=== PATIENT | female | born 1985 | race Caucasian/White ===

== ENCOUNTER 2020-12-01 11:29 | Emergency (ER) | payer OTHER, SELFPAY ==
--- NOTE | 2020-12-01 11:42 | PC.NURSE ---
ekg done at 1137
[2020-12-01 11:49] VITALS: BP 144/73; PULSE 84; RESP 16; TEMP 36.9; O2SAT 100; BMI 25.7
--- NOTE | 2020-12-01 12:10 | XR_ITS ---
EXAMINATION: XR CHEST CLINICAL INFORMATION: Palpitations. COMPARISON: None TECHNIQUE: Frontal upright view of the chest was obtained. FINDINGS: No significant abnormality is noted involving the heart, lungs, mediastinum, bony thorax or soft tissues. XR/XR chest 1V IMPRESSION: Unremarkable examination.
--- NOTE | 2020-12-01 12:11 | ECG_ITS ---
Test Reason : CHEST PAIN Blood Pressure : / mmHG Vent. Rate : 090 BPM Atrial Rate : 090 BPM P-R Int : 136 ms QRS Dur : 078 ms QT Int : 372 ms P-R-T Axes : 061 048 036 degrees QTc Int : 455 ms Normal sinus rhythm Nonspecific ST abnormality Abnormal ECG When compared with ECG of 30-JUN-2019 00:12, Nonspecific T wave abnormality no longer evident in Anterior leads Referred By: Keyal Starks Electronically Signed By:MARIUM COVINGTON
[2020-12-01 12:28] LABS: MANUAL DIFF FLAG NO
[2020-12-01 12:30] LABS: Color Urine STRAW; Glucose Urine UA NEG (NEG); Leukocyte Esterase Urine NEG (NEG); Nitrite Urine NEG (NEG); PH 5.5 (5.0-8.0); Specific Gravity - Urine 1.015 (1.005-1.025); Urine Blood NEG (NEG); Urine Ketones NEG (NEG); Urine Protein NEG (NEG-TRACE)
[2020-12-01 12:31] LABS: Appearance Urine HAZY; Basophils Absolute Auto 0.1 X10*3/uL (0.0-0.2); Basophils Percent Auto 0.5 % (0-2); Eosinophils Absolute Auto 0.1 X10*3/uL (0.0-0.4); Eosinophils Percent Auto 1.1 % (0-4); Hematocrit 36.8 % (37-47); Hemoglobin 12.2 g/dl (12.0-16.0); Imm Gran Abs Auto 0.03 X10*3/uL (0.00-0.03); Imm Gran Pct Auto 0.3 % (0.0-0.4); Lymphocytes Absolute Auto 1.4 X10*3/uL (1.2-4.9); Lymphocytes Percent Auto 15.4 % (20-40); Mean Corpuscular HGB Conc 33.2 g/dl (31.0-35.0); Mean Corpuscular Hemoglobin 27.9 pg (27.0-33.0); Mean Platelet Volume 11.7 fL (9.4-12.3); Monocytes Absolute Auto 0.4 X10*3/uL (0.1-1.2); Monocytes Percent Auto 4.4 % (2-11); Neutrophils Absolute Auto 7.3 X10*3/uL (2.0-8.3); Neutrophils Percent Auto 78.3 % (45-73); Platelet Count 222 X10*3/uL (160-400); Red Blood Count 4.38 X10*6/uL (4.20-5.50); White Blood Count 9.4 X10*3/uL (4.8-10.8)
[2020-12-01 12:32] LABS: UPreg QC Valid YES; Urine Pregnancy NEGATIVE (NEGATIVE)
[2020-12-01 12:57] LABS: Alanine Aminotransferase 10 U/L (0-31); Albumin Level 4.6 g/dL (3.5-5.0); Alkaline Phosphatase 61 U/L (39-117); Anion Gap 14 (12-20); Aspartate Amino Transferase 15 U/L (5-31); Bilirubin Direct < 0.2 mg/dL (0.0-0.5); Bilirubin Total 0.3 mg/dL (0.0-1.0); Blood Urea Nitrogen 9 mg/dL (9-16); Calcium 8.9 mg/dL (8.4-10.2); Carbon Dioxide 20 mmol/L (22-29); Chloride 109 mmol/L (96-108); Creatinine Clr Calc Pharmacy 101.7; Estimated Glomerular Filt Rate > 60; Glucose Random 101 mg/dL (60-115); Magnesium 2.2 mg/dL (1.6-2.6); Sodium 139 mmol/L (135-145); Total Protein 7.4 g/dL (6.5-8.0)
[2020-12-01 12:59] LABS: Troponin-I High Sensitivity < 3.5 ng/L (<3.5-17.0)
[2020-12-01 13:09] VITALS: BP 131/73; PULSE 88; RESP 18; TEMP 37; O2SAT 100
[2020-12-01 13:28] LABS: TSH reflex Free T4 3.59 mIU/mL (0.32-4.0)
[2020-12-01 15:02] VITALS: BP 123/64; PULSE 93; RESP 16; TEMP 36.9; O2SAT 100
--- NOTE | 2020-12-01 15:09 | ED.CHESTPAIN ---
HPI - Chest Pain General Chief Complaint: Chest Pain Stated Complaint: chest pain Time Seen by Provider: 12/01/20 11:56 Source: patient Mode of arrival: ambulatory History of Present Illness HPI narrative: 35-year-old female with no significant past medical history presenting to the ED complaining of chest palpitations since last night with mild SOB. Denies similar symptoms in the past. Denies chest pain, cough, fever, chills, LE edema, abdominal pain, nausea/vomiting, recent travel MD complaint: other (Palpitations) Related Data Allergies Allergy/AdvReac Type Severity Reaction Status Date / Time No Known Allergies Allergy Unverified 07/26/20 17:17 Review of Systems Review of Systems: Constitutional: No Weight loss, No Fever, No Chills Cardiovascular: No Chest Pain, +SOB, No Dyspnea on Exertion, No Edema,+Palpitations Respiratory: No Cough, No Sputum, No Wheezing, No Smoke Exposure, No Dyspnea Gastrointestinal: No Nausea, No Vomiting, No Diarrhea, No Abdominal pain Genitourinary: No irregular bleeding, No Dysuria Musculoskeletal: No joint pain, No Myalgias, No Joint Swelling Skin: No Skin Lesions, No rash Neuro: No Weakness, No Numbness, No Dizziness, No Headache Yes all other systems are reviewed and are negative [facility] Past Medical History Attestation statement: The following information was validated with the patient. Surgical History (Updated 12/01/20 @ 11:51 by Edison Almaraz) Previous section Social History Social History Alcohol intake: never Smoking Status: Never smoker Use of substances other than those prescribed or required for medical reasons: No Advance Directives: No Advance Directives Information Provided: No Physical Exam Vital Signs: Vital Signs: Last Vital Signs Temp 98.4 F 12/01/20 15:02 Pulse 93 12/01/20 15:02 Resp 16 12/01/20 15:02 BP 123/64 12/01/20 15:02 Pulse Ox 100 12/01/20 15:02 Body Mass Index 25.7 Const: General: cooperative, healthy appearing, comfortable and no acute distress Orientation/consciousness: patient oriented x3 Limitations: no limitations HENMT: Head: Yes normal to inspection Ears: hearing grossly normal bilaterally General nose exam: Normal external nose present Face and sinus: Yes normal facial exam Eyes: General: appearance normal, both eyes and all related structures EOM: EOMs intact bilaterally Neck: Neck: Yes normal visual inspection and Yes no meningeal signs Resp: Effort & Inspection: normal respiratory effort Auscultation: clear to auscultation bilaterally, no rales, no rhonchi and no wheezes Cardio: Rate: regular rate Heart sounds: S1 normal heart sound present and S2 normal heart sound present GI: Inspection: Yes normal to inspection Palpation (GI): Soft to palpation, nontender, no guarding and not rigid Skin: Rashes: no rashes Wounds: no wounds Neuro: General: patient oriented x3 and no meningeal signs Gait exam (Neuro): Normal gait present Extrem: Other: No LE edema or calf tenderness General: Yes normal to inspection Course Course Course Narrative: Labs unremarkable including troponin, TSH, and negative . CXR unremarkable. Results were discussed with patient including worrisome signs and symptoms and strict return precautions. Patient is to follow-up with cardiology/PCP MDM - Chest Pain MDM Narrative Medical decision making narrative: 35-year-old female with no significant past medical history presenting to the ED complaining of chest palpitations since last night with mild SOB. On exam VSS, NAD/well-appearing, EKG nonischemic, lungs CTA, no edema. Concern for palpitations/arrhythmia vs metabolic abnormalities/thyroid dysfunction vs ACS. Low concern for PE Plan: ECG, labs, CXR, re-evaluate Medical Records Data Attestation: I reviewed the patient's medical records. Lab Data Attestation: I reviewed the patient's lab results. Result diagrams: 12/01/20 12:22 12/01/20 12:22 Labs: Lab Results 12/01/20 12/01/20 12/01/20 Range/Units 12:22 12:22 12:22 WBC 9.4 (4.8-10.8) X10*3/uL RBC 4.38 (4.20-5.50) X10*6/uL Hgb 12.2 (12.0-16.0) g/dl Hct 36.8 L (37-47) % MCV 84.0 (80-98) fL MCH 27.9 (27.0-33.0) pg MCHC 33.2 (31.0-35.0) g/dl RDW 13.0 (11.0-16.0) % Plt Count 222 (160-400) X10*3/uL MPV 11.7 (9.4-12.3) fL Immature Gran % (Auto) 0.3 (0.0-0.4) % Neut % (Auto) 78.3 H (45-73) % Lymph % (Auto) 15.4 L (20-40) % [place] % (Auto) 4.4 (2-11) % Eos % (Auto) 1.1 (0-4) % Baso % (Auto) 0.5 (0-2) % Lymph # (Auto) 1.4 (1.2-4.9) X10*3/uL [place] # (Auto) 0.4 (0.1-1.2) X10*3/uL Eos # (Auto) 0.1 (0.0-0.4) X10*3/uL Baso # (Auto) 0.1 (0.0-0.2) X10*3/uL Abs Immat Gran (auto) 0.03 (0.00-0.03) X10*3/uL Absolute Neuts (auto) 7.3 (2.0-8.3) X10*3/uL Absolute Nucleated RBC 0.000 (0.0-0.012) X10*3/uL Nucleated RBC % (auto) 0.0 (0.0-0.2) /100WBC Hold Blue Top SEE NOTE Sodium 139 (135-145) mmol/L Potassium 4.0 (3.3-5.1) mmol/l Chloride 109 H (96-108) mmol/L Carbon Dioxide 20 L (22-29) mmol/L Anion Gap 14 (12-20) BUN 9 (9-16) mg/dL Creatinine 0.71 (0.5-1.4) mg/dL Estim Creat Clear Calc 101.7 Estimated GFR > 60 Random Glucose 101 (60-115) mg/dL Calcium 8.9 (8.4-10.2) mg/dL Magnesium 2.2 (1.6-2.6) mg/dL Total Bilirubin 0.3 (0.0-1.0) mg/dL Direct Bilirubin < 0.2 (0.0-0.5) mg/dL AST 15 (5-31) U/L ALT 10 (0-31) U/L Alkaline Phosphatase 61 (39-117) U/L Troponin I High Sens (<3.5-17.0) ng/L Total Protein 7.4 (6.5-8.0) g/dL Albumin 4.6 (3.5-5.0) g/dL TSH 3.59 (0.32-4.0) mIU/mL Urine Color Urine Appearance Urine pH (5.0-8.0) Ur Specific [place] (1.005-1.025) Urine Protein (NEG-TRACE) MG/DL Urine Glucose (UA) (NEG) MG/DL Urine Ketones (NEG) MG/DL Urine Blood (NEG) Urine Nitrite (NEG) Ur Leukocyte Esterase (NEG) Urine Test (NEGATIVE) 12/01/20 12/01/20 Range/Units 12:22 12:22 WBC (4.8-10.8) X10*3/uL RBC (4.20-5.50) X10*6/uL Hgb (12.0-16.0) g/dl Hct (37-47) % MCV (80-98) fL MCH (27.0-33.0) pg MCHC (31.0-35.0) g/dl RDW (11.0-16.0) % Plt Count (160-400) X10*3/uL MPV (9.4-12.3) fL Immature Gran % (Auto) (0.0-0.4) % Neut % (Auto) (45-73) % Lymph % (Auto) (20-40) % [place] % (Auto) (2-11) % Eos % (Auto) (0-4) % Baso % (Auto) (0-2) % Lymph # (Auto) (1.2-4.9) X10*3/uL [place] # (Auto) (0.1-1.2) X10*3/uL Eos # (Auto) (0.0-0.4) X10*3/uL Baso # (Auto) (0.0-0.2) X10*3/uL Abs Immat Gran (auto) (0.00-0.03) X10*3/uL Absolute Neuts (auto) (2.0-8.3) X10*3/uL Absolute Nucleated RBC (0.0-0.012) X10*3/uL Nucleated RBC % (auto) (0.0-0.2) /100WBC Hold Blue Top Sodium (135-145) mmol/L Potassium (3.3-5.1) mmol/l Chloride (96-108) mmol/L Carbon Dioxide (22-29) mmol/L Anion Gap (12-20) BUN (9-16) mg/dL Creatinine (0.5-1.4) mg/dL Estim Creat Clear Calc Estimated GFR Random Glucose (60-115) mg/dL Calcium (8.4-10.2) mg/dL Magnesium (1.6-2.6) mg/dL Total Bilirubin (0.0-1.0) mg/dL Direct Bilirubin (0.0-0.5) mg/dL AST (5-31) U/L ALT (0-31) U/L Alkaline Phosphatase (39-117) U/L Troponin I High Sens < 3.5 (<3.5-17.0) ng/L Total Protein (6.5-8.0) g/dL Albumin (3.5-5.0) g/dL TSH (0.32-4.0) mIU/mL Urine Color STRAW Urine Appearance HAZY Urine pH 5.5 (5.0-8.0) Ur Specific [place] 1.015 (1.005-1.025) Urine Protein NEG (NEG-TRACE) MG/DL Urine Glucose (UA) NEG (NEG) MG/DL Urine Ketones NEG (NEG) MG/DL Urine Blood NEG (NEG) Urine Nitrite NEG (NEG) Ur Leukocyte Esterase NEG (NEG) Urine Test NEGATIVE (NEGATIVE) ECG Data ECG #1: Attestation: I personally reviewed and interpreted this ECG as follows: ECG interpretation date: 12/01/20 ECG interpretation time: 11:36 Interpretation: EKG normal sinus rhythm with a rate of 90. Nonischemic. No STEMI. Discharge Plan Discharge Clinical Impression: Heart palpitations Patient Disposition: Home, Self-Care Instructions: Heart Palpitations (ED) Additional Instructions: Your blood work and chest x-ray were reassuring today in the emergency department. Her EKG did not show anything concerning. It is important for you to follow-up with your primary care doctor as well as a rn document improvement specialist If her symptoms persist or worsen, you develop shortness of breath, fever, or weakness return to the ED Referrals: Vinny Berkowitz MD [Physician] - 1 week Interventions: ED Discharge Assessment Last Done: 12/01/20 15:40 Discharge Date/Time: 12/01/20 15:41
[2020-12-01 15:14] VITALS: PULSE 78
== END 2020-12-01 15:41 | disposition home or self-care (01) ==
PROVIDERS: Physician Assistant; Emergency Provider Internal Medicine
DX: R00.2 Palpitations (principal); R07.9 Chest pain, unspecified
CPT/HCPCS: 36415; 71045; 80048; 80076; 81003; 81025; 83735; 84443; 84484; 85025; 93005; 99284

== ENCOUNTER → 2020-12-12 14:55 | Outpatient (BNVA) | payer OTHER, SELFPAY | PROVIDERS: PCP Internal Medicine; Visit Provider Internal Medicine | DX: R00.2 Palpitations (principal) | CPT/HCPCS: 99202 ==

== ENCOUNTER 2021-01-31 11:55 | Emergency (ER) | payer OTHER, SELFPAY ==
--- NOTE | ~2021-01-31 | US_ITS ---
EXAMINATION: US VENOUS ULTRASOUND WITH DOPPLER LOWER EXTREMITY, RIGHT CLINICAL INFORMATION: Right lower extremity edema, pain. Assess for occult DVT. COMPARISON: None TECHNIQUE: Ultrasound of the deep veins is performed from the hip to the calf with compression sonography and color and pulse Doppler assessment. Spectral analysis with color-flow imaging is performed. FINDINGS: There is normal venous compression and respiratory variation and augmented flow. The visualized common femoral vein, superficial femoral vein, profunda femoral vein, popliteal vein, and the trifurcation region shows no evidence of deep venous thrombosis. No popliteal fossa cyst. US/US venous duplex LE RT IMPRESSION: No DVT demonstrated in the right lower extremity.
--- NOTE | ~2021-01-31 | CT_ITS ---
EXAMINATION: CT ABDOMEN AND PELVIS WITHOUT CONTRAST CLINICAL INFORMATION: Flank pain, fever COMPARISON: Right leg venous ultrasound 01/31/2021, lumbar spine radiographs 09/08/2013 TECHNIQUE: Multidetector volumetric imaging was performed from the superior aspect of the liver through the pubic symphysis. Sagittal and coronal reformatted images were obtained on the technologist's workstation. This CT examination was performed using dose optimization techniques as appropriate, variously including the following: *Automated exposure control *Adjustment of mA and/or kV according to patient size (this includes techniques or standardized protocols for targeted exams where dose is matched to indication/reason for exam; i.e. extremities or head) *Use of iterative reconstruction technique DLP: 420 mGy-cm FINDINGS: LUNG BASES: The visualized lung bases are unremarkable. LIVER, GALLBLADDER, AND BILIARY TREE: The liver is normal in size, shape, and attenuation. No focal hepatic lesion or biliary ductal dilatation is present. The gallbladder is unremarkable with no evidence of radiopaque gallstones, gallbladder wall thickening, or obvious pericholecystic inflammatory changes. PANCREAS: Unremarkable. SPLEEN: Spleen is normal in size and homogeneous. There are 2 small splenules left upper quadrant, both just under 1 cm. ADRENAL GLANDS: Unremarkable. KIDNEYS AND URETERS: The kidneys are normal in size and smooth in contour. There is no hydronephrosis, hydroureter, or perinephric stranding. Punctate nonobstructing calculus under 3 mm is present left lower pole and there are 2 small calculi right lower pole, the larger only 4 x 3 mm. There are no right ureteral calculi. There is a punctate calcification under 3 mm overlying the left iliac vessels and psoas, series 4 image 517, at level S1. The ureter is not clearly visualized and cannot exclude a punctate nonobstructing left ureteral calculus. BLADDER: Unremarkable. GASTROINTESTINAL TRACT: No bowel obstruction or focal inflammatory changes in the bowel or mesentery. The appendix is normal. There is no ascites or fluid collection. No pneumatosis or free air. ABDOMINAL WALL: No significant hernia is appreciated. LYMPH NODES: No lymphadenopathy. VASCULAR: Unremarkable. PELVIC VISCERA: IUD in position. No adnexal mass or pelvic ascites. OSSEOUS STRUCTURES: Unremarkable. CT/CT abdomen pelvis wo con IMPRESSION: 1. No hydronephrosis, hydroureter, or perinephric stranding. Bilateral punctate nonobstructing calculi, largest right lower pole 4 x 3 mm. 2. Punctate calcification under 3 mm left lower quadrant S1 level near expected location of left ureter and iliac vessels. Unable to exclude nonobstructing punctate ureteral calculus. Clinically correlate. 3. No bowel obstruction or inflammatory changes in abdomen or pelvis. Appendix normal.
[2021-01-31 12:05] VITALS: BP 108/62; PULSE 78; RESP 16; TEMP 36.8; O2SAT 98; BMI 20.1
[2021-01-31] MEDS: 0.9 % Sodium Chloride 1,000 ML 999 ML IV (12:45)
[2021-01-31 12:59] LABS: MANUAL DIFF FLAG NO
[2021-01-31 13:02] LABS: Basophils Percent Auto 0.4 % (0-2); Eosinophils Absolute Auto 0.1 X10*3/uL (0.0-0.4); Eosinophils Percent Auto 2.2 % (0-4); Hematocrit 42.4 % (37-47); Hemoglobin 13.9 g/dl (12.0-16.0); Imm Gran Abs Auto 0.02 X10*3/uL (0.00-0.03); Imm Gran Pct Auto 0.4 % (0.0-0.4); Lymphocytes Absolute Auto 1.7 X10*3/uL (1.2-4.9); Lymphocytes Percent Auto 33.7 % (20-40); Mean Corpuscular HGB Conc 32.8 g/dl (31.0-35.0); Mean Corpuscular Hemoglobin 30.8 pg (27.0-33.0); Mean Platelet Volume 11.5 fL (9.4-12.3); Monocytes Absolute Auto 0.5 X10*3/uL (0.1-1.2); Monocytes Percent Auto 8.8 % (2-11); Neutrophils Absolute Auto 2.8 X10*3/uL (2.0-8.3); Neutrophils Percent Auto 54.5 % (45-73); Platelet Count 171 X10*3/uL (160-400); Red Blood Count 4.51 X10*6/uL (4.20-5.50); Red Cell Distribution Width 11.9 % (11.0-16.0); White Blood Count 5.1 X10*3/uL (4.8-10.8)
[2021-01-31 13:08] LABS: Glucose Urine UA NEG (NEG); Leukocyte Esterase Urine TRACE (NEG); Nitrite Urine NEG (NEG); UACC Culture Trigger YES; Urine Blood 1+ (NEG); Urine Ketones NEG (NEG); Urine Protein NEG (NEG-TRACE)
[2021-01-31 13:09] LABS: Appearance Urine HAZY; Color Urine YELLOW
[2021-01-31 13:19] LABS: RBC Urine 0-2 /HPF (0); UACC CULT YES
[2021-01-31 13:20] LABS: Mucus Urine TRACE /LPF; Squamous Epithelial Cell Urine 1+ /LPF
[2021-01-31 13:30] LABS: Alanine Aminotransferase 7 U/L (0-31); Albumin Level 4.6 g/dL (3.5-5.0); Alkaline Phosphatase 68 U/L (39-117); Anion Gap 13 (12-20); Aspartate Amino Transferase 13 U/L (5-31); Bilirubin Total 0.6 mg/dL (0.0-1.0); Blood Urea Nitrogen 10 mg/dL (9-16); Calcium 9.5 mg/dL (8.4-10.2); Carbon Dioxide 28 mmol/L (22-29); Chloride 104 mmol/L (96-108); Creatinine Clr Calc Pharmacy 95.9; Estimated Glomerular Filt Rate > 60; Glucose Random 86 mg/dL (60-115); Potassium 4.3 mmol/L (3.3-5.1); Sodium 141 mmol/L (135-145); Total Protein 7.7 g/dL (6.5-8.0)
[2021-01-31 13:50] LABS: Thyroid Stimulating Hormone 1.03 uIU/mL (0.32-4.0)
[2021-01-31 14:07] LABS: UPreg QC Valid YES; Urine Pregnancy NEGATIVE (NEGATIVE)
[2021-01-31 14:44] VITALS: BP 103/56; PULSE 73; RESP 16; TEMP 36.7; O2SAT 100
--- NOTE | 2021-01-31 14:56 | ED.GENADULT ---
HPI - General Adult General Chief complaint: General Medical <Gerald Louise NP - Last Filed: 01/31/21 15:51> Stated complaint: multiple complaints <Gerald Louise NP - Last Filed: 01/31/21 15:51> Time Seen by Provider: 01/31/21 11:58 <Gerald Louise NP - Last Filed: 01/31/21 15:51> Related Data Home medications: Previous Rx's Medication Instructions Recorded metronidazole [Flagyl] 500 mg PO BID 7 Days #14 tab 01/31/21 nitrofurantoin monohyd/m-cryst 100 mg PO Q12H 7 Days #14 cap 01/31/21 [Macrobid] ondansetron HCl [Zofran] 4 mg PO Q8H PRN #10 tab 01/31/21 tamsulosin [Flomax] 0.4 mg PO DAILY #30 cap 01/31/21 <Gerald Louise NP - Last Filed: 01/31/21 15:51> Allergies/adverse reactions: Allergies Allergy/AdvReac Type Severity Reaction Status Date / Time No Known Allergies Allergy Verified 12/12/20 15:00 <Gerald Louise NP - Last Filed: 01/31/21 15:51> [facility] Past Medical History Surgical History: Surgical History (Updated 12/01/20 @ 11:51 by Edison Almaraz) Previous section <Gerald Louise NP - Last Filed: 01/31/21 15:51> Family History Family History: Family History (Updated 12/12/20 @ 15:04 by CARMEL [place]) Father Heart attack Mother Diabetes <Gerald Louise NP - Last Filed: 01/31/21 15:51> Social History Social History: Social History Alcohol intake: never Smoking Status: Never smoker Use of substances other than those prescribed or required for medical reasons: No Advance Directives: No Advance Directives Information Provided: No <Gerald Louise NP - Last Filed: 01/31/21 15:51> Physical Exam Vital Signs: Vital Signs: Last Vital Signs Temp 98.0 F 01/31/21 14:44 Pulse 73 01/31/21 14:44 Resp 16 01/31/21 14:44 BP 103/56 L 01/31/21 14:44 Pulse Ox 100 01/31/21 14:44 Body Mass Index 20.1 <Gerald Louise NP - Last Filed: 01/31/21 15:51> Vital Signs: Last Vital Signs Temp 98.0 F 01/31/21 14:44 Pulse 73 01/31/21 14:44 Resp 16 01/31/21 14:44 BP 103/56 L 01/31/21 14:44 Pulse Ox 100 01/31/21 14:44 Body Mass Index 20.1 <Jeanna Woody NP - Last Filed: 02/09/21 09:52> Course Course Course Narrative: -This is an addendum to the chart and I have not seen this patient personally. +BV on BV panel. Patient treated. Multiple calls to inform with no answer. Letter sent. <Jeanna Woody NP - Last Filed: 02/09/21 09:52> Medical Decision Making Lab Data Result diagrams: : 01/31/21 12:43 01/31/21 12:43 <Gerald Louise NP - Last Filed: 01/31/21 15:51> Labs: Lab Results 01/31/21 01/31/21 01/31/21 Range/Units 12:43 12:43 12:43 WBC 5.1 (4.8-10.8) X10*3/uL RBC 4.51 (4.20-5.50) X10*6/uL Hgb 13.9 (12.0-16.0) g/dl Hct 42.4 (37-47) % MCV 94.0 (80-98) fL MCH 30.8 (27.0-33.0) pg MCHC 32.8 (31.0-35.0) g/dl RDW 11.9 (11.0-16.0) % Plt Count 171 (160-400) X10*3/uL MPV 11.5 (9.4-12.3) fL Immature Gran % (Auto) 0.4 (0.0-0.4) % Neut % (Auto) 54.5 (45-73) % Lymph % (Auto) 33.7 (20-40) % [place] % (Auto) 8.8 (2-11) % Eos % (Auto) 2.2 (0-4) % Baso % (Auto) 0.4 (0-2) % Lymph # (Auto) 1.7 (1.2-4.9) X10*3/uL [place] # (Auto) 0.5 (0.1-1.2) X10*3/uL Eos # (Auto) 0.1 (0.0-0.4) X10*3/uL Baso # (Auto) 0.0 (0.0-0.2) X10*3/uL Abs Immat Gran (auto) 0.02 (0.00-0.03) X10*3/uL Absolute Neuts (auto) 2.8 (2.0-8.3) X10*3/uL Absolute Nucleated RBC 0.000 (0.0-0.012) X10*3/uL Nucleated RBC % (auto) 0.0 (0.0-0.2) /100WBC Hold Blue Top SEE NOTE Sodium 141 (135-145) mmol/L Potassium 4.3 (3.3-5.1) mmol/L Chloride 104 (96-108) mmol/L Carbon Dioxide 28 (22-29) mmol/L Anion Gap 13 (12-20) BUN 10 (9-16) mg/dL Creatinine 0.74 (0.5-1.4) mg/dL Estim Creat Clear Calc 95.9 Estimated GFR > 60 Random Glucose 86 (60-115) mg/dL Calcium 9.5 D (8.4-10.2) mg/dL Total Bilirubin 0.6 (0.0-1.0) mg/dL AST 13 (5-31) U/L ALT 7 (0-31) U/L Alkaline Phosphatase 68 (39-117) U/L Total Protein 7.7 (6.5-8.0) g/dL Albumin 4.6 (3.5-5.0) g/dL TSH 1.03 (0.32-4.0) uIU/mL Urine Color Urine Appearance Urine pH (5.0-8.0) Ur Specific [place] (1.005-1.025) Urine Protein (NEG-TRACE) MG/DL Urine Glucose (UA) (NEG) MG/DL Urine Ketones (NEG) MG/DL Urine Blood (NEG) Urine Nitrite (NEG) Ur Leukocyte Esterase (NEG) Urine RBC (0) /HPF Urine WBC (0-4) /HPF Ur Squamous Epith Cells /LPF Urine Bacteria /LPF Urine Mucus /LPF Urine Test (NEGATIVE) Crystal species DNA (Negative) [place] DNA Probe (Negative) Trichomonas DNA Probe (Negative) 01/31/21 01/31/21 01/31/21 Range/Units 12:43 12:43 15:36 WBC (4.8-10.8) X10*3/uL RBC (4.20-5.50) X10*6/uL Hgb (12.0-16.0) g/dl Hct (37-47) % MCV (80-98) fL MCH (27.0-33.0) pg MCHC (31.0-35.0) g/dl RDW (11.0-16.0) % Plt Count (160-400) X10*3/uL MPV (9.4-12.3) fL Immature Gran % (Auto) (0.0-0.4) % Neut % (Auto) (45-73) % Lymph % (Auto) (20-40) % [place] % (Auto) (2-11) % Eos % (Auto) (0-4) % Baso % (Auto) (0-2) % Lymph # (Auto) (1.2-4.9) X10*3/uL [place] # (Auto) (0.1-1.2) X10*3/uL Eos # (Auto) (0.0-0.4) X10*3/uL Baso # (Auto) (0.0-0.2) X10*3/uL Abs Immat Gran (auto) (0.00-0.03) X10*3/uL Absolute Neuts (auto) (2.0-8.3) X10*3/uL Absolute Nucleated RBC (0.0-0.012) X10*3/uL Nucleated RBC % (auto) (0.0-0.2) /100WBC Hold Blue Top Sodium (135-145) mmol/L Potassium (3.3-5.1) mmol/L Chloride (96-108) mmol/L Carbon Dioxide (22-29) mmol/L Anion Gap (12-20) BUN (9-16) mg/dL Creatinine (0.5-1.4) mg/dL Estim Creat Clear Calc Estimated GFR Random Glucose (60-115) mg/dL Calcium (8.4-10.2) mg/dL Total Bilirubin (0.0-1.0) mg/dL AST (5-31) U/L ALT (0-31) U/L Alkaline Phosphatase (39-117) U/L Total Protein (6.5-8.0) g/dL Albumin (3.5-5.0) g/dL TSH (0.32-4.0) uIU/mL Urine Color YELLOW Urine Appearance HAZY Urine pH 7.0 (5.0-8.0) Ur Specific [place] 1.020 (1.005-1.025) Urine Protein NEG (NEG-TRACE) MG/DL Urine Glucose (UA) NEG (NEG) MG/DL Urine Ketones NEG (NEG) MG/DL Urine Blood 1+ H (NEG) Urine Nitrite NEG (NEG) Ur Leukocyte Esterase TRACE H (NEG) Urine RBC 0-2 (0) /HPF Urine WBC 5-9 H (0-4) /HPF Ur Squamous Epith Cells 1+ /LPF Urine Bacteria NONE /LPF Urine Mucus TRACE /LPF Urine Test NEGATIVE (NEGATIVE) Crystal species DNA Negative (Negative) [place] DNA Probe Positive A (Negative) Trichomonas DNA Probe Negative (Negative) <Gerald Louise, [employer]ARTON MAKING MACHINE OPERATOR - Last Filed: 01/31/21 15:51> Lab Results 01/31/21 01/31/21 01/31/21 Range/Units 12:43 12:43 12:43 WBC 5.1 (4.8-10.8) X10*3/uL RBC 4.51 (4.20-5.50) X10*6/uL Hgb 13.9 (12.0-16.0) g/dl Hct 42.4 (37-47) % MCV 94.0 (80-98) fL MCH 30.8 (27.0-33.0) pg MCHC 32.8 (31.0-35.0) g/dl RDW 11.9 (11.0-16.0) % Plt Count 171 (160-400) X10*3/uL MPV 11.5 (9.4-12.3) fL Immature Gran % (Auto) 0.4 (0.0-0.4) % Neut % (Auto) 54.5 (45-73) % Lymph % (Auto) 33.7 (20-40) % [place] % (Auto) 8.8 (2-11) % Eos % (Auto) 2.2 (0-4) % Baso % (Auto) 0.4 (0-2) % Lymph # (Auto) 1.7 (1.2-4.9) X10*3/uL [place] # (Auto) 0.5 (0.1-1.2) X10*3/uL Eos # (Auto) 0.1 (0.0-0.4) X10*3/uL Baso # (Auto) 0.0 (0.0-0.2) X10*3/uL Abs Immat Gran (auto) 0.02 (0.00-0.03) X10*3/uL Absolute Neuts (auto) 2.8 (2.0-8.3) X10*3/uL Absolute Nucleated RBC 0.000 (0.0-0.012) X10*3/uL Nucleated RBC % (auto) 0.0 (0.0-0.2) /100WBC Hold Blue Top SEE NOTE Sodium 141 (135-145) mmol/L Potassium 4.3 (3.3-5.1) mmol/L Chloride 104 (96-108) mmol/L Carbon Dioxide 28 (22-29) mmol/L Anion Gap 13 (12-20) BUN 10 (9-16) mg/dL Creatinine 0.74 (0.5-1.4) mg/dL Estim Creat Clear Calc 95.9 Estimated GFR > 60 Random Glucose 86 (60-115) mg/dL Calcium 9.5 D (8.4-10.2) mg/dL Total Bilirubin 0.6 (0.0-1.0) mg/dL AST 13 (5-31) U/L ALT 7 (0-31) U/L Alkaline Phosphatase 68 (39-117) U/L Total Protein 7.7 (6.5-8.0) g/dL Albumin 4.6 (3.5-5.0) g/dL TSH 1.03 (0.32-4.0) uIU/mL Urine Color Urine Appearance Urine pH (5.0-8.0) Ur Specific [place] (1.005-1.025) Urine Protein (NEG-TRACE) MG/DL Urine Glucose (UA) (NEG) MG/DL Urine Ketones (NEG) MG/DL Urine Blood (NEG) Urine Nitrite (NEG) Ur Leukocyte Esterase (NEG) Urine RBC (0) /HPF Urine WBC (0-4) /HPF Ur Squamous Epith Cells /LPF Urine Bacteria /LPF Urine Mucus /LPF Urine Test (NEGATIVE) Crystal species DNA (Negative) [place] DNA Probe (Negative) Trichomonas DNA Probe (Negative) 01/31/21 01/31/21 01/31/21 Range/Units 12:43 12:43 15:36 WBC (4.8-10.8) X10*3/uL RBC (4.20-5.50) X10*6/uL Hgb (12.0-16.0) g/dl Hct (37-47) % MCV (80-98) fL MCH (27.0-33.0) pg MCHC (31.0-35.0) g/dl RDW (11.0-16.0) % Plt Count (160-400) X10*3/uL MPV (9.4-12.3) fL Immature Gran % (Auto) (0.0-0.4) % Neut % (Auto) (45-73) % Lymph % (Auto) (20-40) % [place] % (Auto) (2-11) % Eos % (Auto) (0-4) % Baso % (Auto) (0-2) % Lymph # (Auto) (1.2-4.9) X10*3/uL [place] # (Auto) (0.1-1.2) X10*3/uL Eos # (Auto) (0.0-0.4) X10*3/uL Baso # (Auto) (0.0-0.2) X10*3/uL Abs Immat Gran (auto) (0.00-0.03) X10*3/uL Absolute Neuts (auto) (2.0-8.3) X10*3/uL Absolute Nucleated RBC (0.0-0.012) X10*3/uL Nucleated RBC % (auto) (0.0-0.2) /100WBC Hold Blue Top Sodium (135-145) mmol/L Potassium (3.3-5.1) mmol/L Chloride (96-108) mmol/L Carbon Dioxide (22-29) mmol/L Anion Gap (12-20) BUN (9-16) mg/dL Creatinine (0.5-1.4) mg/dL Estim Creat Clear Calc Estimated GFR Random Glucose (60-115) mg/dL Calcium (8.4-10.2) mg/dL Total Bilirubin (0.0-1.0) mg/dL AST (5-31) U/L ALT (0-31) U/L Alkaline Phosphatase (39-117) U/L Total Protein (6.5-8.0) g/dL Albumin (3.5-5.0) g/dL TSH (0.32-4.0) uIU/mL Urine Color YELLOW Urine Appearance HAZY Urine pH 7.0 (5.0-8.0) Ur Specific [place] 1.020 (1.005-1.025) Urine Protein NEG (NEG-TRACE) MG/DL Urine Glucose (UA) NEG (NEG) MG/DL Urine Ketones NEG (NEG) MG/DL Urine Blood 1+ H (NEG) Urine Nitrite NEG (NEG) Ur Leukocyte Esterase TRACE H (NEG) Urine RBC 0-2 (0) /HPF Urine WBC 5-9 H (0-4) /HPF Ur Squamous Epith Cells 1+ /LPF Urine Bacteria NONE /LPF Urine Mucus TRACE /LPF Urine Test NEGATIVE (NEGATIVE) Crystal species DNA Negative (Negative) Gardnerella DNA Probe Positive A (Negative) Trichomonas DNA Probe Negative (Negative) <Jeanna Woody NP - Last Filed: 02/09/21 09:52> Discharge Plan Discharge Clinical Impression: Bilateral renal stones, Pain of right calf, UTI (urinary tract infection) <Gerald Louise NP - Last Filed: 01/31/21 15:51> Patient Disposition: Home, Self-Care <Gerald Louise NP - Last Filed: 01/31/21 15:51> Instructions: Muscle Strain (ED), Kidney Stones (ED), Urinary Tract Infection in Women (ED) <Gerald Louise NP - Last Filed: 01/31/21 15:51> Prescriptions: New nitrofurantoin monohyd/m-cryst [Macrobid] 100 mg capsule 100 mg PO Q12H 7 Days Qty: 14 RF: 0 metronidazole [Flagyl] 500 mg tablet 500 mg PO BID 7 Days Qty: 14 RF: 0 tamsulosin [Flomax] 0.4 mg capsule 0.4 mg PO DAILY Qty: 30 RF: 0 ondansetron HCl [Zofran] 4 mg tablet 4 mg PO Q8H PRN (Reason: nausea and vomiting) Qty: 10 RF: 0 <Gerald Louise NP - Last Filed: 01/31/21 15:51> Referrals: ED Physician,Generic [Physician] - 2 days <Gerald Louise NP - Last Filed: 01/31/21 15:51> Interventions: ED Discharge Assessment Last Done: 01/31/21 16:11 <Gerald Louise NP - Last Filed: 01/31/21 15:51> Discharge Date/Time: 01/31/21 16:12 <Gerald Louise NP - Last Filed: 01/31/21 15:51>
[2021-02-01 10:14] LABS: BV Int Neg Control Negative (Negative); BV Int Pos Control Positive (Positive)
== END 2021-01-31 16:12 | disposition home or self-care (01) ==
PROVIDERS: Nurse Practitioner Primary Care; Emergency Provider Emergency Medicine; PCP Internal Medicine
DX: N20.0 Calculus of kidney (principal); M79.661 Pain in right lower leg; N39.0 Urinary tract infection, site not specified
CPT/HCPCS: 36415; 74176; 80053; 81001; 81025; 84443; 85025; 87086; 87480; 87510; 87660; 93971; 96360; 99284

== ENCOUNTER 2021-03-17 15:21 | Outpatient (REF) | payer OTHER, SELFPAY ==
[2021-03-17 17:22] LABS: Influenza A PCR NEGATIVE (Negative); Influenza B PCR NEGATIVE (Negative); Resp Syncy Virus RNA Qual PCR NEGATIVE (Negative); SARS COV2 PCR INHOUSE NEGATIVE (Negative)
== END 2021-03-17 15:22 | disposition home or self-care (01) ==
LOC: HO.LAB 15:21
PROVIDERS: Visit Provider Nurse Practitioner Primary Care
DX: Z20.822 Contact with and (suspected) exposure to COVID-19 (principal)
CPT/HCPCS: 0241U; 36415